=== PATIENT | female | born 1960 | race African-American/Black ===

== ENCOUNTER 2021-09-04 07:28 | Emergency (ER) | payer BC ==
[~2021-09-04] VITALS: Ht 162.6 cm; Wt 72.6 kg
--- NOTE | 2021-09-04 09:22 | NUR ---
Patient discharged to home in stable condition. Written and verbal after care instructions given. Patient verbalizes understanding of instructions. Stressed follow up or return to ER for worsening s/s.pt walks in steady gait.
[2021-09-04 09:26] VITALS: BP 131/81
== END 2021-09-04 09:29 | disposition home or self-care (01) ==
LOC: ER 07:28
DX: M54.2 Cervicalgia (principal); M25.512 Pain in left shoulder; Z85.3 Personal history of malignant neoplasm of breast
CPT/HCPCS: 70450; 72125; 73030; A4663